=== PATIENT | female | born 1970 | race Hispanic/Latino ===

== ENCOUNTER 2024-04-21 16:01 | Observation (INO) | payer SELFPAY ==
[2024-04-21] MEDS ORDERED: Dextrose 50% Abboject 50 ML SYRINGE SLOW IVP PRN (16:38)
[2024-04-21] MEDS ORDERED: Bisacodyl 5 MG TAB PO PRN (16:38)
[2024-04-21] MEDS ORDERED: Calcium Carbonate 500 MG ChewTAB PO PRN (16:38)
[2024-04-21] MEDS ORDERED: Ondansetron PF 4 MG/2 ML Vial IVP PRN (16:38)
[2024-04-21] MEDS ORDERED: Glucagon 1 MG/ML KIT IM PRN (16:38)
[2024-04-21] MEDS ORDERED: Ondansetron ODT 4 MG TAB PO PRN (16:38)
[2024-04-21] MEDS ORDERED: Senokot S 8.6-50 MG TAB PO PRN (16:38)
[2024-04-21] MEDS ORDERED: Dextrose 5% in Water 1,000 ML IV PRN (16:38)
[2024-04-21] MEDS ORDERED: Nitroglycerin 0.4 MG TAB (25 Tab Bottle) SL PRN (16:39)
[2024-04-21] MEDS ORDERED: Insulin Regular, Human 100 UNIT/ML 10 ML VIAL SC PRN (16:39)
[2024-04-21 17:05] VITALS: BMI 23.2
[2024-04-21 21:42] LABS: Troponin I Less than 0.010 ng/mL (< 0.028)
[2024-04-21] MEDS: Acetaminophen 325 MG TAB PO PRN (22:07)
[2024-04-22 01:21] LABS: Troponin I Less than 0.010 ng/mL (< 0.028)
[2024-04-22 04:44] LABS: #Basophils 0.11 10x3/uL (0.0-0.2); %Basophils 1.3 % (0.0-1.0); %Lymphocytes 31.3 % (21.0-51.0); %Monocytes 10.5 % (0.0-10.0); %Neutrophils 55.6 % (42.0-75.0); Hematocrit 39.3 % (36.0-47.0); Hemoglobin 13.2 g/dL (12.0-16.0); Mean Corpuscular HGB CONC 33.6 g/dL (32.0-36.0); Mean Corpuscular Hemoglobin 29.6 pg (27.0-31.0); Mean Corpuscular Volume 88.1 fL (78.0-98.0); Mean Platelet Volume 10.4 fL (7.4-10.4); Platelet Count 346 10x3/uL (130-400); RBC Distribution Width 13.1 % (11.5-14.5); Red Blood Cell (RBC) Count 4.46 mill/uL (4.20-5.40)
[2024-04-22 05:05] LABS: Anion Gap 12 mmol/L (10-20); BUN (Urea Nitrogen) 15 mg/dL (9.8-20.1); Calc. Creatinine Clearance 110 mL/min (70-130); Calcium 8.5 mg/dL (7.8-10.44); Carbon Dioxide 19 mmol/L (22-29); Cardiac Risk 4.9 (Less than 4.5); Chloride 105 mmol/L (98-107); Cholesterol 219 mg/dl (< 200 Desired); Estimated GFR 112; Glucose 285 mg/dL (70-105); HDL Cholesterol 45 mg/dL (>60 Neg Risk); LDL Cholesterol, Calculated 121 mg/dL; Sodium 132 mmol/L (136-145); Triglycerides 264 mg/dL (Less than 150)
[2024-04-22] MEDS: Insulin Regular, Human 100 UNIT/ML 10 ML VIAL SC PRN (05:19)
[2024-04-22 05:49] LABS: Pregnancy Test - Urine (BHCG) Negative (Negative); Pregu Control Background? CLEAR/WHITE (CLR/WHITE); Pregu Control Bar Appear? YES (CONTROL BAR); Specific Gravity 1.033 (1.002-1.036)
[2024-04-22] MEDS ORDERED: Regadenoson 0.4 MG/5 ML SYRINGE ONE (09:18)
[2024-04-22 09:28] LABS: Hemoglobin A1c 12.9 % (4.0-6.0)
[2024-04-22] MEDS: Aspirin Chewable 81 MG TAB PO SCH (11:25)
[2024-04-22 12:04] VITALS: BP 118/67; TEMP 98.1
[2024-04-24] MEDS ORDERED: FLU (Fluarix Triv) TS24-25(6MOS UP)/PF 45 MCG/0.5 ML Syringe IM ONE (17:15)
== END 2024-04-22 16:03 | disposition home or self-care (01) ==
LOC: OBS 16:01
PROVIDERS: ADMIT Internal Medicine; ATTEND Internal Medicine
DX: R07.9 Chest pain, unspecified (principal); I10 Essential (primary) hypertension; E11.9 Type 2 diabetes mellitus without complications; E78.5 Hyperlipidemia, unspecified; J45.909 Unspecified asthma, uncomplicated; Z90.49 Acquired absence of other specified parts of digestive tract; Z79.51 Long term (current) use of inhaled steroids; Z79.84 Long term (current) use of oral hypoglycemic drugs; Z79.4 Long term (current) use of insulin; Z79.899 Other long term (current) drug therapy
CPT/HCPCS: 36415; 36416; 78452; 80048; 80061; 81025; 83036; 84484; 85025; 93017; 94760; A9502; G0378; J1815; J2785

== ENCOUNTER 2024-10-24 13:14 | Emergency (ER) | payer OTHER, SELFPAY ==
[2024-10-24] MEDS ORDERED: Ketorolac Tromethamine 30 MG (1 mL) VIAL ONE (15:42)
== END 2024-10-24 16:15 | disposition home or self-care (01) ==
LOC: ERS 13:14
DX: M25.561 Pain in right knee (principal); M25.512 Pain in left shoulder; E11.9 Type 2 diabetes mellitus without complications; I10 Essential (primary) hypertension; W01.0XXA Fall on same level from slipping, tripping and stumbling without subsequent striking against object, initial encounter
CPT/HCPCS: 96372; 99283; J1885

== ENCOUNTER 2024-11-18 13:55 | Emergency (ER) | payer OTHER ==
[2024-11-18 16:21] LABS: Bacteria/HPF 2+ HPF (None Seen); CAUTI Indications for Culture Dysuria,urgency,freq; Glucose, Urine (Dipstick) Greater than 1000 mg/dL (Negative); Leukocyte Negative Leu/uL (Negative); Protein, Urine (Dipstick) Negative (Neg-Trace); RBC/HPF 0-3 HPF (0-3); Specific Gravity, Urine 1.033 (1.002-1.036)
[2024-11-18 16:22] LABS: Urine Culture Reflex No No
[2024-11-18 16:35] LABS: #Basophils 0.07 10x3/uL (0.0-0.2); #Eosinophils 0.07 10x3/uL (0.0-0.7); #Monocytes 0.54 10x3/uL (0.11-0.59); #Neutrophils 4.33 10x3/uL (1.40-6.50); %Basophils 1.0 % (0.0-1.0); %Eosinophils 1.0 % (0.0-10.0); %Lymphocytes 29.5 % (21.0-51.0); %Monocytes 7.6 % (0.0-10.0); %Neutrophils 60.6 % (42.0-75.0); Hematocrit 37.9 % (36.0-47.0); Hemoglobin 12.5 g/dL (12.0-16.0); Mean Corpuscular Hemoglobin 29.6 pg (27.0-31.0); Mean Corpuscular Volume 89.6 fL (78.0-98.0); Platelet Count 361 10x3/uL (130-400); Red Blood Cell (RBC) Count 4.23 mill/uL (4.20-5.40); White Blood Cell (WBC) Count 7.13 10x3/uL (4.8-10.8)
[2024-11-18 16:56] LABS: ALT (SGPT) 12 U/L (Less than 34); AST (SGOT) 14 U/L (11-34); Albumin 3.4 g/dL (3.1-4.5); Alkaline Phosphatase 80 U/L (40-110); Anion Gap 15 mmol/L (10-20); BUN (Urea Nitrogen) 13 mg/dL (9.8-20.1); Bilirubin, Total 0.1 mg/dL (0.3-1.2); Calc. Creatinine Clearance 0 mL/min (70-130); Calcium 9.3 mg/dL (7.8-10.44); Carbon Dioxide 28 mmol/L (22-29); Chloride 104 mmol/L (98-107); Globulin 3.2 g/dL (2.4-3.5); Glucose 313 mg/dL (70-105); Magnesium 1.9 mg/dL (1.6-2.6); Potassium 4.3 mmol/L (3.5-5.1); Sodium 143 mmol/L (136-145)
== END 2024-11-18 17:50 | disposition home or self-care (01) ==
LOC: ERS 13:55
DX: M79.10 Myalgia, unspecified site (principal); R07.9 Chest pain, unspecified; E11.65 Type 2 diabetes mellitus with hyperglycemia; I10 Essential (primary) hypertension; Z55.6 Problems related to health literacy
CPT/HCPCS: 36415; 36416; 71045; 80053; 81001; 82010; 83735; 84484; 85025; 87428; 93005; 96360